=== PATIENT | female | born 1980 | race Caucasian/White ===

== ENCOUNTER 2018-07-17 02:08 | Emergency (ER) | payer SELFPAY ==
[~2018-07-17] VITALS: Ht 175.3 cm; Wt 75.0 kg
[2018-07-17] MEDS ORDERED: SODIUM CHLORIDE 0.9% 1,000 ML IV ONE (02:40)
[2018-07-17] MEDS ORDERED: HYDROCODONE/ACETAMINOPHEN 5/325MG TABLET PO ONE (02:45)
[2018-07-17 03:15] LABS: BASOPHILS % 0.5 % (0.0-2.0); CHLORIDE 107 mEq/L (98-107); EOSINOPHILS % 1.2 % (0.0-5.0); HEMATOCRIT. 34.2 % (36.0-48.0); HEMOGLOBIN. 11.6 g/dL (12.0-16.0); LYMPHOCYTES % 16.5 % (20.0-50.0); MEAN CORPUSCULAR VOLUME 94.2 fL (81.0-99.0); MEAN PLATELET VOLUME 8.9 fl (7.4-10.4); MONOCYTES % 8.5 % (2.0-8.0); NEUTROPHILS % 73.3 % (40.0-76.0); PLATELET 200 x1000/uL (130-400); RED BLOOD CELL COUNT 3.63 mill/uL (4.2-5.4)
[2018-07-17 03:30] LABS: HCG SCREEN NEGATIVE
[2018-07-17 04:37] VITALS: BP 131/72
== END 2018-07-17 04:37 | disposition home or self-care (01) ==
LOC: ER 02:08
DX: R55 Syncope and collapse (principal); K04.7 Periapical abscess without sinus; J45.909 Unspecified asthma, uncomplicated; F12.10 Cannabis abuse, uncomplicated; Z98.890 Other specified postprocedural states
CPT/HCPCS: 36415; 80053; 84703; 85025; 93005; 96360; 99283; J7030

== ENCOUNTER 2020-06-14 22:47 | Emergency (ER) | payer SELFPAY ==
[~2020-06-14] VITALS: Ht 175.3 cm; Wt 72.0 kg
[2020-06-14 22:52] VITALS: BP 120/81
[2020-06-15] MEDS ORDERED: ALBUTEROL (0.083%) 2.5MG/3ML NEB HHN STA (00:04)
[2020-06-15] MEDS ORDERED: PREDNISONE 20MG TABLET PO STA (00:04)
[2020-06-15] MEDS ORDERED: IPRATROPIUM BROMIDE (0.02%) 0.5MG/2.5ML NEB HHN STA (00:04)
== END 2020-06-15 01:38 | disposition home or self-care (01) ==
LOC: ER 22:47
DX: J45.901 Unspecified asthma with (acute) exacerbation (principal); Z98.890 Other specified postprocedural states
CPT/HCPCS: 71045; 81025; 99283; J7512; Z7610

== ENCOUNTER 2020-08-30 23:16 | Emergency (ER) | payer SELFPAY ==
[~2020-08-30] VITALS: Ht 175.3 cm; Wt 84.0 kg
[2020-08-31 00:36] VITALS: BP 124/85
== END 2020-08-31 00:40 | disposition home or self-care (01) ==
LOC: ER 23:16
DX: J45.909 Unspecified asthma, uncomplicated (principal); Z91.14 Patient's other noncompliance with medication regimen
CPT/HCPCS: 99283

== ENCOUNTER 2021-04-09 21:30 | Emergency (ER) | payer SELFPAY ==
[~2021-04-09] VITALS: Ht 175.3 cm; Wt 82.0 kg
[2021-04-09 21:48] VITALS: BP 119/61
[2021-04-10] MEDS ORDERED: ALBUTEROL (0.083%) 2.5MG/3ML NEB HHN ONE
[2021-04-10] MEDS ORDERED: PREDNISONE 20MG TABLET PO ONE
[2021-04-10] MEDS ORDERED: FLUT1DIS3 INH (01:07)
[2021-04-10] MEDS ORDERED: ALBU18HF2 IH (01:07)
[2021-04-10] MEDS ORDERED: P50 MT (01:07)
== END 2021-04-10 01:41 | disposition home or self-care (01) ==
LOC: ER 21:30
DX: J45.901 Unspecified asthma with (acute) exacerbation (principal)
CPT/HCPCS: 71045; 81025; 94640; 99283; J7512; Z7610

== ENCOUNTER 2021-05-02 19:04 | Emergency (ER) | payer MEDICAID, OTHER ==
[~2021-05-02] VITALS: Ht 175.3 cm; Wt 94.8 kg
[~2021-05-02 19:04] MED LIST: ALBU18HF2 IH; FLUT1DIS3 INH; P50 MT
[2021-05-02] MEDS ORDERED: IBUPROFEN 800MG TABLET PO ONE (22:30)
[2021-05-03 00:35] VITALS: BP 120/67
== END 2021-05-03 00:44 | disposition home or self-care (01) ==
LOC: ER 19:04
DX: B34.9 Viral infection, unspecified (principal); J45.909 Unspecified asthma, uncomplicated; Z20.822 Contact with and (suspected) exposure to COVID-19; Z98.890 Other specified postprocedural states
CPT/HCPCS: 71045; 81025; 87426; 99285; C9803; U0003; U0005; 99284

== ENCOUNTER 2022-01-19 15:23 | Emergency (ER) | payer MEDICAID, OTHER ==
[~2022-01-19] VITALS: Ht 175.3 cm; Wt 90.0 kg
[2022-01-19 15:32] VITALS: BP 127/76
[2022-01-19] MEDS ORDERED: BACL-141 MT (16:18)
[2022-01-19] MEDS ORDERED: LIDO700A15 TP (16:18)
[2022-01-19] MEDS ORDERED: ACET-2708 MT (16:18)
[2022-01-19] MEDS ORDERED: MED4 MT (16:18)
[2022-01-19] MEDS ORDERED: LIDOCAINE 5% PATCH TOP SCH (16:30)
[2022-01-19] MEDS ORDERED: ACETAMINOPHEN 325MG TABLET PO ONE (16:30)
== END 2022-01-19 16:48 ==
LOC: ER 15:23
DX: M54.2 Cervicalgia (principal); M54.10 Radiculopathy, site unspecified; F17.290 Nicotine dependence, other tobacco product, uncomplicated; Z98.890 Other specified postprocedural states
CPT/HCPCS: 81025; 99283

== ENCOUNTER 2022-04-15 03:28 | Inpatient (IN) | payer MEDICAID, OTHER ==
[~2022-04-15] VITALS: Ht 175.3 cm; Wt 87.5 kg
[~2022-04-15 03:28] MED LIST changes: +ACET-2708 MT; +BACL-141 MT; +LIDO700A15 TP; +MED4 MT
[2022-04-15] MEDS ORDERED: CLINDAMYCIN 600 MG in DEXTROSE 5% WATER 50 ML IV ONE (05:30)
[2022-04-15] MEDS ORDERED: CLINDAMYCIN 600MG PREMIX 50 ML IV NR (05:45)
[2022-04-15] MEDS ORDERED: TETANUS, DIPHTHERIA, PERTUSSIS VAC/PF 0.5ML (>10YR OLD) IM ONE (06:15)
[2022-04-15 06:22] LABS: BASOPHILS % 0.8 % (0.0-2.0); EOSINOPHILS % 4.5 % (0.0-5.0); HEMATOCRIT. 35.7 % (36.0-48.0); LYMPHOCYTES % 13.9 % (20.0-50.0); MEAN CORPUSCULAR HEMOGLOBIN 31.7 pg (28.0-32.0); MEAN CORPUSCULAR VOLUME 94.6 fL (81.0-99.0); MONOCYTES % 6.3 % (2.0-8.0); NEUTROPHILS % 74.5 % (40.0-76.0); PLATELET 240 x1000/uL (130-400); RED BLOOD CELL COUNT 3.78 mill/uL (4.2-5.4); RED CELL DISTRIBUTION WIDTH 13.3 % (11.6-14.6)
[2022-04-15 06:24] LABS: CHLORIDE 110 mEq/L (98-107)
[2022-04-15] MEDS ORDERED: DIPHENHYDRAMINE 50MG/ML VIAL IV ONE (10:45)
[2022-04-15] MEDS ORDERED: LORAZEPAM 0.5MG TABLET PO PRN (12:30)
[2022-04-15] MEDS ORDERED: DOCUSATE SODIUM 100MG CAPSULE PO PRN (12:30)
[2022-04-15] MEDS ORDERED: IPRATROPIUM/ALBUTEROL 0.5-3(2.5)MG/3ML NEB HHN PRN (12:30)
[2022-04-15] MEDS ORDERED: CLONIDINE 0.1MG TABLET PO PRN (12:30)
[2022-04-15] MEDS ORDERED: ONDANSETRON HCL 4MG/2ML INJ IV PRN (12:30)
[2022-04-15] MEDS ORDERED: ACETAMINOPHEN 325MG TABLET PO PRN ×2 (12:30)
[2022-04-15] MEDS ORDERED: VANCOMYCIN 1G PREMIX 200 ML IV SCH (12:45)
[2022-04-15] MEDS ORDERED: POTASSIUM CHLORIDE 20MEQ TABLET SR PO NR (13:04)
[2022-04-15] MEDS ORDERED: NALOXONE HCL 0.4MG/ML VIAL IV PRN (13:15)
[2022-04-15] MEDS: GABAPENTIN 300MG CAPSULE PO SCH ×2 (13:29→21:15)
[2022-04-15] MEDS: CITALOPRAM HYDROBROMIDE 10MG TABLET PO SCH (13:30)
[2022-04-15 16:10] VITALS: BP 135/75
[2022-04-15] MEDS: HYDROCODONE/ACETAMINOPHEN 5/325MG TABLET PO PRN ×2 (16:22→21:16)
[2022-04-15] MEDS: CLONAZEPAM 0.5MG TABLET PO SCH ×2 (17:00→21:14)
[2022-04-15] MEDS: AMPICILLIN SOD/SULBACTAM NA 1.5 G in SODIUM CHLORIDE 0.9% 50 ML IV SCH ×4 (18:30→23:48)
[2022-04-15 20:00] VITALS: BP 125/75
[2022-04-15] MEDS: QUETIAPINE FUMARATE 25MG TABLET PO SCH (21:20)
[2022-04-15] MEDS: VANCOMYCIN 750MG PREMIX 150 ML IV SCH (21:20)
[2022-04-16] VITALS: BP 124/67
[2022-04-16] MEDS: HYDROCODONE/ACETAMINOPHEN 5/325MG TABLET PO PRN ×4 (05:10→18:46)
[2022-04-16 05:45] VITALS: BP 135/79
[2022-04-16] MEDS: VANCOMYCIN 750MG PREMIX 150 ML IV SCH ×3 (05:53→21:39)
[2022-04-16] MEDS: GABAPENTIN 300MG CAPSULE PO SCH ×3 (05:53→21:39)
[2022-04-16] MEDS: AMPICILLIN SOD/SULBACTAM NA 1.5 G in SODIUM CHLORIDE 0.9% 50 ML IV SCH ×3 (05:53→18:46)
[2022-04-16 06:43] LABS: BASOPHILS % 0.9 % (0.0-2.0); EOSINOPHILS % 5.8 % (0.0-5.0); HEMATOCRIT. 34.5 % (36.0-48.0); HEMOGLOBIN. 11.7 g/dL (12.0-16.0); LYMPHOCYTES % 24.2 % (20.0-50.0); MEAN CORPUSCULAR HEMOGLOBIN 32.2 pg (28.0-32.0); MEAN CORPUSCULAR VOLUME 94.5 fL (81.0-99.0); MEAN PLATELET VOLUME 9.3 fl (7.4-10.4); MONOCYTES % 8.4 % (2.0-8.0); NEUTROPHILS % 60.7 % (40.0-76.0); PLATELET 202 x1000/uL (130-400); RED BLOOD CELL COUNT 3.65 mill/uL (4.2-5.4); RED CELL DISTRIBUTION WIDTH 12.9 % (11.6-14.6)
[2022-04-16 07:13] LABS: CHLORIDE 111 mEq/L (98-107)
[2022-04-16 08:00] VITALS: BP 128/90
[2022-04-16] MEDS: CLONAZEPAM 0.5MG TABLET PO SCH ×2 (09:39→16:36)
[2022-04-16] MEDS: CITALOPRAM HYDROBROMIDE 10MG TABLET PO SCH (09:40)
[2022-04-16 12:00] VITALS: BP 142/62
[2022-04-16 16:00] VITALS: BP 124/71
[2022-04-16] MEDS ORDERED: IBUPROFEN 400MG TABLET PO PRN (16:15)
[2022-04-16 20:00] VITALS: BP 163/97
[2022-04-16] MEDS ORDERED: HYDROCODONE/ACETAMINOPHEN 5/325MG TABLET PO PRN (20:15)
[2022-04-16] MEDS: QUETIAPINE FUMARATE 25MG TABLET PO SCH (20:19)
[2022-04-17] VITALS: BP_SYST 132; BP_SYST 146; BP_DIAS 70; BP_DIAS 74
[2022-04-17] MEDS: AMPICILLIN SOD/SULBACTAM NA 1.5 G in SODIUM CHLORIDE 0.9% 50 ML IV SCH ×3 (00:34→12:56)
[2022-04-17 04:00] VITALS: BP 140/67
[2022-04-17] MEDS: VANCOMYCIN 750MG PREMIX 150 ML IV SCH (05:26)
[2022-04-17] MEDS: GABAPENTIN 300MG CAPSULE PO SCH (05:26)
[2022-04-17 05:51] LABS: EOSINOPHILS % 6.4 % (0.0-5.0); HEMATOCRIT. 36.1 % (36.0-48.0); HEMOGLOBIN. 12.3 g/dL (12.0-16.0); LYMPHOCYTES % 23.8 % (20.0-50.0); MEAN CORPUSCULAR HEMOGLOBIN 31.8 pg (28.0-32.0); MEAN CORPUSCULAR VOLUME 93.4 fL (81.0-99.0); MONOCYTES % 7.6 % (2.0-8.0); NEUTROPHILS % 61.2 % (40.0-76.0); PLATELET 219 x1000/uL (130-400); RED BLOOD CELL COUNT 3.86 mill/uL (4.2-5.4); RED CELL DISTRIBUTION WIDTH 12.9 % (11.6-14.6)
[2022-04-17 06:24] LABS: CHLORIDE 106 mEq/L (98-107)
[2022-04-17 06:31] LABS: VANCOMYCIN TROUGH 13.5 ug/mL (5.0-10.0)
[2022-04-17] MEDS: CITALOPRAM HYDROBROMIDE 10MG TABLET PO SCH (08:37)
[2022-04-17] MEDS: CLONAZEPAM 0.5MG TABLET PO SCH (08:37)
[2022-04-17] MEDS ORDERED: AMOX1TAB16 MT (10:58)
[2022-04-17] MEDS ORDERED: SULF1TAB48 MT (10:58)
[2022-04-17 13:17] VITALS: BP 128/72
== END 2022-04-17 13:35 | disposition home or self-care (01) | DRG 383 ==
LOC: ER 03:28 → EDBEDREQ 10:51 → 4WST 14:12
PROVIDERS: ADMIT Internal Medicine; ATTEND Internal Medicine
DX: L03.113 Cellulitis of right upper limb (principal); J45.909 Unspecified asthma, uncomplicated; W53.11XA Bitten by rat, initial encounter; Y93.89 Activity, other specified; Y92.89 Other specified places as the place of occurrence of the external cause; Y99.8 Other external cause status
CPT/HCPCS: 36415; 80048; 80053; 80202; 85025; 90715; 99285; J0295; J1200; J3370; J3490; J7060

== ENCOUNTER 2022-11-18 10:09 | Emergency (ER) | payer MEDICAID ==
[~2022-11-18] VITALS: Ht 175.3 cm; Wt 87.0 kg
[~2022-11-18 10:09] MED LIST changes: +AMOX1TAB16 MT; -MED4 MT; -P50 MT; +SULF1TAB48 MT
[2022-11-18 10:18] VITALS: BP 124/79
== END 2022-11-18 12:49 | disposition left against medical advice (07) ==
LOC: ER 10:09
DX: Z53.21 Procedure and treatment not carried out due to patient leaving prior to being seen by health care provider (principal)
CPT/HCPCS: 99281

== ENCOUNTER 2022-11-18 14:10 | Emergency (ER) | payer MEDICAID ==
[~2022-11-18] VITALS: Ht 175.3 cm; Wt 89.0 kg
[2022-11-18 14:32] VITALS: BP 155/104
[2022-11-18] MEDS ORDERED: IBUPROFEN 400MG TABLET PO ONE (15:00)
== END 2022-11-18 16:29 | disposition left against medical advice (07) ==
LOC: ER 14:10
DX: Z53.21 Procedure and treatment not carried out due to patient leaving prior to being seen by health care provider (principal)
CPT/HCPCS: 99281

== ENCOUNTER 2022-11-25 10:40 | Emergency (ER) | payer MEDICAID ==
[~2022-11-25] VITALS: Ht 175.3 cm; Wt 89.0 kg
[2022-11-25 14:00] VITALS: BP 142/81
[2022-11-25] MEDS ORDERED: IBUPROFEN 600MG TABLET PO ONE (14:00)
[2022-11-25 14:36] LABS: HEMATOCRIT 36.9 % (36.0-48.0); HEMOGLOBIN 12.7 g/dL (12.0-16.0); MEAN CORPUSCULAR HEMOGLOBIN 31.8 pg (28.0-32.0); MEAN CORPUSCULAR VOLUME 92.8 fL (81.0-99.0); PLATELET 224 x1000/uL (130-400); RED BLOOD CELL COUNT 3.98 mill/uL (4.2-5.4); RED CELL DISTRIBUTION WIDTH 14.2 % (11.6-14.6)
== END 2022-11-25 16:45 | disposition home or self-care (01) ==
LOC: ER 10:40
DX: S30.0XXA Contusion of lower back and pelvis, initial encounter (principal); W18.30XA Fall on same level, unspecified, initial encounter; Y93.89 Activity, other specified; Y92.89 Other specified places as the place of occurrence of the external cause; Y99.8 Other external cause status
CPT/HCPCS: 36415; 72170; 85027; 99284